=== PATIENT | female | born 1980 | race Caucasian/White ===

== ENCOUNTER 2017-05-17 12:18 | Emergency (ER) | payer SELFPAY ==
[~2017-05-17 12:18] MED LIST: ALBUTEROL17 GM INH; DOXYCYCLINE HY100 M1 PO; FLEXERIL10 M1 PO; FLEXERIL10 MG PO; IBUPROFEN800 MG PO; LORTAB 5/500 TA1 TA1 PO; NO MEDICATIONS; PREDNISONE PO; PROVENTIL17 GM IH; VICODIN 5/1 TAB 5/50 PO; ZITHROMAX PO
[2017-05-17] MEDS ORDERED: BENTYL20 MG (12:49)
== END 2017-05-17 13:50 | disposition home or self-care (01) ==
LOC: SED 12:18
DX: N61.0 Mastitis without abscess (principal); K21.9 Gastro-esophageal reflux disease without esophagitis; F17.210 Nicotine dependence, cigarettes, uncomplicated; I10 Essential (primary) hypertension
CPT/HCPCS: 99283